=== PATIENT | male | born 1980 | race Two or more races ===

== ENCOUNTER 2018-06-17 09:18 | Emergency (ER) | payer SELFPAY ==
--- NOTE | 2018-06-17 09:34 | EDPHY ---
H & P Time Seen by Provider: 06/17/18 09:28 HPI/ROS: CHIEF COMPLAINT: Blood sugar high HISTORY OF PRESENT ILLNESS: Patient ran out of his diabetes medications 2 weeks ago. He sees Rehana Doyle at the [facility]. Over the last week he has had some shakiness and epigastric discomfort, also associated with a mild headache. took his blood sugar this morning and it was greater than 400. No chest pain or shortness of breath. He has had a little bit of diarrhea for the past 48 hr. No lower abdominal pain, but some nausea. No fever or chills. REVIEW OF SYSTEMS: Eye: no change in vision ENT: no sore throat Cardiac: no chest pain or syncope Pulmonary: no cough or SOB Abdomen: HPI, no vomiting Musculoskeletal: no back pain Skin: no rash Neuro: HPI Constitutional: no fever : no urinary symptoms A comprehensive 10 point review of systems is otherwise negative aside from elements mentioned in the history of present illness. PAST MEDICAL HISTORY: Diabetes, on oral medication Social history: No alcohol General Appearance: Alert and conversant, cooperative. Eyes: No scleral icterus. ENT, Mouth: Dry mucous membranes. Respiratory: Normal respiratory effort, breath sounds equal, lungs are clear to auscultation. Cardiovascular: Regular rate and rhythm. Gastrointestinal: Slight epigastric tenderness but no Stanford sign and no peritoneal signs. No McBurney's point tenderness. Neurological: Alert, face symmetric, normal motor and sensory in extremities. Skin: Warm and dry, no rashes. Musculoskeletal: No peripheral edema. Psychiatric: Not agitated. Emergency Department course/MDM: Plan for IV saline hydration with Zofran 4 mg IV for nausea. EKG. Labs to include chemistry panel, LFT and lipase. Results discussed with the patient and his . He does not appear to have ketoacidosis or severe hyperglycemia. He needs to follow up with his primary care clinic in the next 24-48 hours to restart his medications. Patient says he feels better after therapy, doubt acute coronary syndrome or pancreatitis or hepatitis or surgical abdominal process. Smoking Status: Never smoked Constitutional: Initial Vital Signs Temperature (C) 36.6 C 06/17/18 09:25 Heart Rate 67 06/17/18 09:25 Respiratory Rate 16 06/17/18 09:25 Blood Pressure 135/85 H 06/17/18 09:25 O2 Sat (%) 95 06/17/18 09:25 O2 Delivery Mode Room Air Allergies/Adverse Reactions: No Known Allergies Allergy (Verified 06/17/18 09:24) Home Medications: Medication Instructions Recorded metFORMIN HCL [Glucophage 500 mg 500 mg PO BIDMEAL #60 tab 09/28/14 (*)] Medical Decision Making - Diagnostics EKG Interpretation: 12-lead EKG interpreted by me; official reading is in computer system. My interpretation is sinus rhythm rate 67 with no acute ischemic changes. Differential Diagnosis: Differential considered including but not limited to infection, medication noncompliance, diabetic ketoacidosis, diabetic hyperglycemia without ketoacidosis - Data Points Laboratory Results: Laboratory Results 06/17/18 09:37 06/17/18 09:37 06/17/18 06/17/18 09:37 09:37 WBC 12.52 10^3/uL H 10^3/uL (3.80-9.50) RBC 5.67 10^6/uL 10^6/uL (4.40-6.38) Hgb 16.8 g/dL g/dL (13.7-17.5) Hct 47.5 % % (40.0-51.0) MCV 83.8 fL fL (81.5-99.8) MCH 29.6 pg pg (27.9-34.1) MCHC 35.4 g/dL g/dL (32.4-36.7) RDW 12.4 % % (11.5-15.2) Plt Count 328 10^3/uL 10^3/uL (150-400) MPV 10.6 fL fL (8.7-11.7) Neut % (Auto) 56.8 % % (39.3-74.2) Lymph % (Auto) 34.4 % % (15.0-45.0) Routt % (Auto) 6.4 % % (4.5-13.0) Eos % (Auto) 1.4 % % (0.6-7.6) Baso % (Auto) 0.5 % % (0.3-1.7) Nucleat RBC Rel Count 0.0 % % (0.0-0.2) Absolute Neuts (auto) 7.12 10^3/uL H 10^3/uL (1.70-6.50) Absolute Lymphs (auto) 4.31 10^3/uL H 10^3/uL (1.00-3.00) Absolute Monos (auto) 0.80 10^3/uL 10^3/uL (0.30-0.80) Absolute Eos (auto) 0.17 10^3/uL 10^3/uL (0.03-0.40) Absolute Basos (auto) 0.06 10^3/uL 10^3/uL (0.02-0.10) Absolute Nucleated RBC 0.00 10^3/uL 10^3/uL (0-0.01) Immature Gran % 0.5 % % (0.0-1.1) Immature Gran # 0.06 10^3/uL 10^3/uL (0.00-0.10) Sodium 137 mEq/L mEq/L (135-145) Potassium 4.4 mEq/L mEq/L (3.3-5.0) Chloride 100 mEq/L mEq/L (97-110) Carbon Dioxide 28 mEq/l mEq/l (22-31) Anion Gap 9 mEq/L mEq/L (6-14) BUN 15 mg/dL mg/dL (7-23) Creatinine 0.8 mg/dL mg/dL (0.7-1.3) Estimated GFR > 60 Glucose 216 mg/dL H mg/dL (70-100) Calcium 9.8 mg/dL mg/dL (8.5-10.4) Total Bilirubin 0.8 mg/dL mg/dL (0.1-1.4) Conjugated Bilirubin 0.1 mg/dL mg/dL (0.0-0.5) Unconjugated Bilirubin 0.7 mg/dL mg/dL (0.0-1.1) AST 44 IU/L IU/L (17-59) ALT 64 IU/L IU/L (21-72) Alkaline Phosphatase 95 IU/L IU/L (38-126) Total Protein 7.8 g/dL g/dL (6.3-8.2) Albumin 4.6 g/dL g/dL (3.5-5.0) Lipase 69 IU/L IU/L (23-300) Medications Given: Discontinued Medications Sodium Chloride (Ns) 1,000 mls @ 0 mls/hr IV EDNOW ONE; Wide Open PRN Reason: Protocol Stop: 06/17/18 09:36 Last Admin: 06/17/18 09:43 Dose: 1,000 mls Ondansetron HCl (Zofran) 4 mg IVP EDNOW ONE Stop: 06/17/18 09:36 Last Admin: 06/17/18 09:43 Dose: 4 mg Departure - Departure Disposition: Home, Routine, Self-Care Clinical Impression: diabetes type 2 Condition: Good Instructions: Diabetic Hyperglycemia (ED) Additional Instructions: Your blood sugar today is 216. Please see your regular doctor in the office in the next 48 hr to get restarted on your medications. Referrals: Rehana Doyle DO [Primary Care Provider] - As per Instructions
[2018-06-17] MEDS ORDERED: ONDANSETRON 4 MG/2 ML VIAL IVP ONE (09:35)
[2018-06-17] MEDS ORDERED: NS 1,000 ML IV ONE (09:35)
--- NOTE | 2018-06-17 09:48 | CPEKG ---
Test Reason : OPEN Blood Pressure : / mmHG Vent. Rate : 067 BPM Atrial Rate : 066 BPM P-R Int : 155 ms QRS Dur : 100 ms QT Int : 365 ms P-R-T Axes : 035 058 032 degrees QTc Int : 386 ms Sinus rhythm Confirmed by Kristopher Christensen ([id number]) on 06/17/2018 9:47:43 AM Referred By: Confirmed By:Kristopher Christensen
[2018-06-17 09:59] LABS: PLATELET COUNT 328 10^3/uL (150-400)
[2018-06-17 11:34] VITALS: BP 128/79
== END 2018-06-17 11:40 | disposition home or self-care (01) ==
DX: E11.65 Type 2 diabetes mellitus with hyperglycemia (principal)
CPT/HCPCS: 96374; J2405